=== PATIENT | female | born 1930 | race Caucasian/White ===

== ENCOUNTER 2017-10-05 18:33 | Inpatient (IN) ==
[2017-10-05 19:10] LABS: Eosinophils % 0.2 % (0.1-12.0); Hematocrit 33.7 % (37.0-47.0); Hemoglobin 9.4 g/dL (12.2-16.2); Lymphocytes # 0.7 K/mm3 (0.7-4.5); Lymphocytes % 3.5 K/mm3 (10-50); Mean Corpuscular HGB Conc 27.9 g/dL (31.8-35.4); Mean Corpuscular Hemoglobin 16.7 pg (27.0-31.2); Mean Corpuscular Volume 59.7 fl (81-99); Mean Platelet Volume 6.2 fl (7.4-10.4); Monocytes # 1.1 K/mm3 (0.1-1.0); Monocytes % 5.7 % (1.7-9.3); Neutrophils % 90.6 % (37.0-80.0); Platelet Count 419 K/mm3 (142-424); Red Blood Count 5.65 M/mm3 (4.20-5.40); White Blood Count 19.8 K/mm3 (4.8-10.8)
[2017-10-05 19:19] LABS: Hypochromasia 3+; Lymphocytes % 3 % (10-50); Monocytes % 7 % (2-9); Neutrophils % 89 % (42-76); Total Cells Counted 100
[2017-10-05 19:20] LABS: Albumin/Globulin Ratio 0.8 (1.1-1.8); Anion Gap 13.1 mEq/L (5-15); Bilirubin,Total 1.6 mg/dL (0.2-1.0); Calcium 9.4 mg/dL (8.5-10.1); Globulin 3.9 gm/dl (1.3-3.2); Potassium 4.1 mmoL/L (3.5-5.1); Total Protein,Serum 6.9 gm/dL (6.4-8.2)
--- NOTE | 2017-10-05 20:23 | Emergency Department Note ---
ED Disposition Clinical Impression: Incarcerated right inguinal hernia, SBO (small bowel obstruction), Renal insufficiency Anemia Qualifiers: Anemia type: unspecified type Qualified Code(s): D64.9 - Anemia, unspecified Disposition: Admitted As Inpatient Condition on Discharge: Serious - Critical Care Critical Care Time: No Attestation: On 10/05/17, the high probability of a clinically significant, sudden or life threatening deterioration of the following system(s) required my full and direct attention, intervention and personal management. The time I documented below is in addition to time spent performing reported procedures but includes the following listed in this critical care notation. Medical Decision Making - Medical Records Medical records reviewed: Yes: I reviewed the patient's medical records. - Wilfrido Inquiry Pt receiving controlled substance: No Vital Signs: 10/05/17 18:42 Temperature 98.1 F Temperature Source Oral Pulse Rate [Left Radial] 77 Respiratory Rate 24 Blood Pressure [Right Arm] 100/58 Blood Pressure Mean [Right Arm] 72 Blood Pressure Source [Right Arm] Automatic Cuff Blood Pressure Position [Right Arm] Sitting 02 Sat by Pulse Oximetry 95 Oxygen Delivery Method Nasal Cannula Oxygen Flow Rate (LPM) 2 - Lab Data Lab results reviewed: Yes: I reviewed the patient's lab results. Lab Results 10/05/17 19:00: WBC 19.8 H, RBC 5.65 H, Hgb 9.4 L, Hct 33.7 L, MCV 59.7 L, MCH 16.7 L, MCHC 27.9 L, RDW 21.0 H, Plt Count 419, MPV 6.2 L, Neut % (Auto) 90.6 H , Lymph % (Auto) 3.5 L, [place] % (Auto) 5.7, Eos % (Auto) 0.2, Baso % (Auto) 0.0 L , Neut # (Auto) 18.0 H, Lymph # (Auto) 0.7, [place] # (Auto) 1.1 H, Eos # (Auto) 0.0, Baso # (Auto) 0.0, Total Counted 100, Neutrophils % (Manual) 89 H, Band Neutrophils % 1.0, Lymphocytes % (Manual) 3 L, Monocytes % (Manual) 7, Platelet Estimate Normal, Hypochromasia 3+, Microcytosis 3+ 10/05/17 19:00: Sodium 136, Potassium 4.1, Chloride 98, Carbon Dioxide 29, Anion Gap 13.1, BUN 43 H, Creatinine 2.32 H, Estimated Creat Clear 12, Estimated GFR 20 L, Est GFR ( Amer) 24 L, Glucose 132 H, Calcium 9.4, Total Bilirubin 1.6 H, AST 18, ALT 22, Alkaline Phosphatase 70, Total Protein 6.9, Albumin 3.0 L, Globulin 3.9 H, Albumin/Globulin Ratio 0.8 L, Amylase 31, Lipase 79 10/05/17 19:00: Lactic Acid 1.4 10/05/17 20:25: Urine Color Yellow, Urine Appearance Clear, Urine pH 5.5, Ur Specific [place] 1.025, Urine Protein Negative, Urine Glucose (UA) Negative, Urine Ketones Negative, Urine Blood Negative, Urine Nitrate Negative, Urine Bilirubin Negative, Urine Urobilinogen 1.0, Ur Leukocyte Esterase 2+ A, Urine RBC None, Urine WBC 20-50, Ur Squamous Epith Cells 10-20, Ur Transition Epith Cell 10-20, Urine Bacteria 2+, Hyaline Casts 10-20 Result diagrams: 10/05/17 19:00 10/05/17 19:00 Orders (Tests/Meds): ED MEDICATIONS Discontinued Medications Generic Name Dose Route Start Last Admin Trade Name Freq PRN Reason Stop Dose Admin Sodium Chloride 1,000 mls @ 999 mls/hr 10/05/17 19:00 10/05/17 19:03 Sod Chlor 0.9% 1000ml Bag IV 10/05/17 20:00 999 mls/hr .Q1H1M YENNIFER Administration Ondansetron HCl 4 mg 10/05/17 18:49 10/05/17 19:03 Zofran 4mg/2ml Vial IV 10/05/17 18:50 4 mg ONCE ONE Administration ORDERS Category Date Time Status CT abdomen pelvis wo con Stat Cat Scan 10/05/17 18:51 Taken Chest XR 2 view (NOT portable) [XR chest 2V] Stat Exams 10/05/17 19:02 Taken Blood Culture Stat Micro 10/05/17 18:51 Received Urine Culture Stat Micro 10/05/17 20:25 Received - Radiology Data #1 Image Reviewed: Yes I reviewed the patient's radiology image Preliminary Findings: Abnormal (chronic changes ) - CT Data CT Scan: Abdomen, Pelvis Time Received: 21:[address] Reviewed: Yes: I have viewed the radiologist's interpretation Preliminary Findings: Abnormal (sbo/incarcerated hernia ) - ECG Data Tracing #1 I reviewed this ECG and interpreted as documented below: Normal Sinus Rhythm: Yes Ischemic changes: non-specific ST-T wave changes - Physician Consults Physician Consulted: sabina Reason -: Pt condition Additional Consult: sarah Reason -: Admission Nausea/Vomiting/Diarrhea HPI - General Chief complaint: Nausea/Vomiting/Diarrhea Stated complaint: Vomiting, Chills, Abd pain, Dizzy Time Seen by Provider: 10/05/17 20:00 Mode of Arrival: Ambulatory Limitations: No Limitations Description of Symptoms (Recalled from ER Triage Doc. by RN): Pt was seen Monday by Sarah for nausea and vomiting, she was given an antibiotic for a bacterial infection unsure what kind, but pt hasnt gotten any better, she is unable to keep any food or drink down. - History of Present Illness HPI Narrative: pt with abd pain over the last few day with pain rt groin and no fever or trauma and no diarrhea MD complaint: nausea, vomiting, abdominal pain Onset (ago): day(s) Associated Abdominal Pain: Yes Location of pain: RLQ Severity: moderate Consistency: constant Associated symptoms: nausea/vomiting - Related Data Allergies Allergy/AdvReac Type Severity Reaction Status Date / Time INGREDIENT: NO KNOWN - NO Allergy Unknown Uncoded 02/28/17 15:[address] [facility] History I have reviewed the patient's past medical history: Yes Medical History: Denies:: Diabetes Mellitus Type 1, Diabetes Mellitus Type 2 - Social History Smoking Status: Former smoker Alcohol Intake: never - Psychiatric History Expresses thoughts of harming self/others: None Suicide Plan Description: No Plan ROS Obtained: Yes All systems reviewed & no additional complaints - Constitutional Constitutional: Denies fever(s) - Eyes Eyes: Denies change in vision - ENT Ears, Nose, Mouth, and Throat: Denies sore throat - Cardiovascular Cardiovascular: Denies chest pain - Respiratory Respiratory: No cough - Gastrointestinal Gastrointestingal: Reports: abdominal pain, nausea, vomiting - Genitourinary Female Genitourinary: Denies hematuria - Integumentary/Breasts Skin/Breast: Denies rash - Neurologic Neurologic: Denies seizure-like activity Physical Exam - General General appearance: alert - Head Head exam: normocephalic - Eye Eye exam: Present: PERRL, EOMI. Absent: scleral icterus - ENT ENT exam: Present: mucous membranes dry - Neck Neck exam: Present: trachea midline - Respiratory Respiratory exam: Present: other (dec bs bilat ). Absent: respiratory distress - Cardiovascular Cardiovascular exam: Present: regular rate, systolic murmur, +S4 - Abdominal Exam Abdominal exam: Present: soft, tenderness Abdominal tenderness: Present: moderate Comment: incarcerated rt inguinal hernia - Extremities Exam Extremities exam: Absent: calf tenderness - Neurological Exam Neurological exam: Present: alert, oriented X3, CN II-XII intact - Psychiatric Psychiatric exam: Present: normal affect - Skin Skin exam: Absent: rash
[2017-10-05 20:36] LABS: Appearance,Urine CLEAR (Clear); Blood, Urine Negative (Negative); Color,Urine YELLOW (Yellow); Glucose,Urine (UA) Negative (Negative); Ketones,Urine Negative (Negative); Leukocyte Esterase,Urine 2+ (Negative); Microscopic, Urine URINE MICROSCOPIC (MICROSCOPIC); PH,Urine 5.5 (5.0-8.5); Protein,Urine Negative (Negative); Specific Gravity, Urine 1.025 (1.005-1.030)
[2017-10-05 20:41] LABS: Bilirubin,Urine Negative (Negative)
[2017-10-05 20:50] LABS: Bacteria,Urine 2+ /lpf; WBC,Urine 20-50 #/hpf (0-3)
[2017-10-05 21:28] LABS: INR 0.98 (0.9-1.1); Prothrombin Time 10.1 seconds (9.4-11.8)
--- NOTE | 2017-10-05 21:34 | Consult Report ---
*Admission Date: 10/05/17 *Chief complaint: Nausea vomiting abdominal pain *History of present illness: Patient is an 86-year-old white female. She has a known history of a right inguinal hernia. She states that 4 days ago after she had eaten she developed cramping abdominal pain with nausea and vomiting. This has persisted. She saw primary care provider on Monday. It is felt that this may be gastroenteritis. Her symptoms have persisted. She presented to the emergency department this evening. She underwent noncontrast CT scan which revealed small bowel obstruction secondary to right inguinal hernia. Patient states that she had this right inguinal bulge which has been "flat" for years. However, when she developed the nausea and vomiting 4 days ago is protruded significantly more. Surgical consultation was obtained. Review of Systems - Review of Systems Review of systems:: pertinent systems reviewed and negative unless documented below - *Neurologic Denies seizure-like activity [facility] History Medical History: Reports:: Chronic Obstructive Pulmonary Disease (COPD) Denies:: Diabetes Mellitus Type 1, Diabetes Mellitus Type 2 - *Social History Smoking Status: Former smoker Alcohol Intake: never - Psychiatric History Expresses thoughts of harming self/others: None Suicide Plan Description: No Plan Meds Home Medications Medication Instructions Recorded Confirmed Type Alendronate Sodium 70 mg PO WEEKLY 10/05/17 10/05/17 History Aspirin [Aspir 81] 81 mg PO DAILY 10/05/17 10/05/17 History Cyanocobalamin (Vitamin B-12) 2,000 mcg PO DAILY 10/05/17 10/05/17 History [Vitamin B-12] Ergocalciferol (Vitamin D2) 400 unit PO DAILY 10/05/17 10/05/17 History [Vitamin D] Furosemide [Furosemide 40MG tAB] 40 mg PO DAILY 10/05/17 10/05/17 History Latanoprost [Xalatan 0.005% Ophth 1 drop EYE-BOTH DAILY 10/05/17 10/05/17 History Soln 2.5mL] Metformin HCl 500 mg PO DAILY 10/05/17 10/05/17 History Nebivolol HCl [Bystolic] 5 mg PO DAILY 10/05/17 10/05/17 History Ondansetron HCl 4 mg PO Q6HP PRN 10/05/17 10/05/17 History Pravastatin Sodium 80 mg PO DAILY 10/05/17 10/05/17 History Spironolactone 25 mg PO DAILY 10/05/17 10/05/17 History Sulfamethoxazole/Trimethoprim 800 mg PO DAILY 10/05/17 10/05/17 History [Sulfamethoxazole-Tmp Ds Tablet] Ubidecarenone [Co Q-10] 10 mg PO DAILY 10/05/17 10/05/17 History Umeclidinium Brm/Vilanterol Tr 1 inhalation PO DAILY 10/05/17 10/05/17 History [Anoro Ellipta 62.5-25 Mcg INH] Valsartan 160 mg PO DAILY 10/05/17 10/05/17 History predniSONE [Deltasone 10mg tablet] 5 mg PO DAILY 10/05/17 10/05/17 History Allergies Allergy/AdvReac Type Severity Reaction Status Date / Time INGREDIENT: NO KNOWN - NO Allergy Unknown Uncoded 02/28/17 15:30 KNOWN DRUG ALLERGY Exam Vital signs and Labs for Last 24 Hours: Temp Pulse Resp BP Pulse Ox 98.1 F 77 24 100/58 95 10/05/17 18:42 10/05/17 18:42 10/05/17 18:42 10/05/17 18:42 10/05/17 18:42 Laboratory Results - last 24 hr 10/05/17 18:00: PT 10.1, INR 0.98 10/05/17 19:00: WBC 19.8 H, RBC 5.65 H, Hgb 9.4 L, Hct 33.7 L, MCV 59.7 L, MCH 16.7 L, MCHC 27.9 L, RDW 21.0 H, Plt Count 419, MPV 6.2 L, Neut % (Auto) 90.6 H , Lymph % (Auto) 3.5 L, [place] % (Auto) 5.7, Eos % (Auto) 0.2, Baso % (Auto) 0.0 L , Neut # (Auto) 18.0 H, Lymph # (Auto) 0.7, [place] # (Auto) 1.1 H, Eos # (Auto) 0.0, Baso # (Auto) 0.0, Total Counted 100, Neutrophils % (Manual) 89 H, Band Neutrophils % 1.0, Lymphocytes % (Manual) 3 L, Monocytes % (Manual) 7, Platelet Estimate Normal, Hypochromasia 3+, Microcytosis 3+ 10/05/17 19:00: Sodium 136, Potassium 4.1, Chloride 98, Carbon Dioxide 29, Anion Gap 13.1, BUN 43 H, Creatinine 2.32 H, Estimated Creat Clear 12, Estimated GFR 20 L, Est GFR ( Amer) 24 L, Glucose 132 H, Calcium 9.4, Total Bilirubin 1.6 H, AST 18, ALT 22, Alkaline Phosphatase 70, Total Protein 6.9, Albumin 3.0 L, Globulin 3.9 H, Albumin/Globulin Ratio 0.8 L, Amylase 31, Lipase 79 10/05/17 19:00: Lactic Acid 1.4 10/05/17 20:25: Urine Color Yellow, Urine Appearance Clear, Urine pH 5.5, Ur Specific [place] 1.025, Urine Protein Negative, Urine Glucose (UA) Negative, Urine Ketones Negative, Urine Blood Negative, Urine Nitrate Negative, Urine Bilirubin Negative, Urine Urobilinogen 1.0, Ur Leukocyte Esterase 2+ A, Urine RBC None, Urine WBC 20-50, Ur Squamous Epith Cells 10-20, Ur Transition Epith Cell 10-20, Urine Bacteria 2+, Hyaline Casts 10-20 I & O for Last 24 hours: Intake & Output 10/03/17 10/04/17 10/05/17 10/06/17 11:59 11:59 11:59 11:59 Weight 92 lb - Constitutional no acute distress - *Routine Respiratory Exam Present: distant breath sounds, diminished air movement - *Routine Cardiovascular Exam Present: RRR - *Routine Abdominal Exam Present: soft - *Routine Exam Groin: Present: inguinal hernia, tenderness Comments: She has an obvious right inguinal hernia. There is some minor erythema. Palpation elicits tenderness and I am unable to reduce the hernia. Results - Labs 10/05/17 19:00 10/05/17 19:00 Laboratory Results - last 24 hr 10/05/17 18:00: PT 10.1, INR 0.98 10/05/17 19:00: WBC 19.8 H, RBC 5.65 H, Hgb 9.4 L, Hct 33.7 L, MCV 59.7 L, MCH 16.7 L, MCHC 27.9 L, RDW 21.0 H, Plt Count 419, MPV 6.2 L, Neut % (Auto) 90.6 H , Lymph % (Auto) 3.5 L, [place] % (Auto) 5.7, Eos % (Auto) 0.2, Baso % (Auto) 0.0 L , Neut # (Auto) 18.0 H, Lymph # (Auto) 0.7, [place] # (Auto) 1.1 H, Eos # (Auto) 0.0, Baso # (Auto) 0.0, Total Counted 100, Neutrophils % (Manual) 89 H, Band Neutrophils % 1.0, Lymphocytes % (Manual) 3 L, Monocytes % (Manual) 7, Platelet Estimate Normal, Hypochromasia 3+, Microcytosis 3+ 10/05/17 19:00: Sodium 136, Potassium 4.1, Chloride 98, Carbon Dioxide 29, Anion Gap 13.1, BUN 43 H, Creatinine 2.32 H, Estimated Creat Clear 12, Estimated GFR 20 L, Est GFR ( Amer) 24 L, Glucose 132 H, Calcium 9.4, Total Bilirubin 1.6 H, AST 18, ALT 22, Alkaline Phosphatase 70, Total Protein 6.9, Albumin 3.0 L, Globulin 3.9 H, Albumin/Globulin Ratio 0.8 L, Amylase 31, Lipase 79 10/05/17 19:00: Lactic Acid 1.4 10/05/17 20:25: Urine Color Yellow, Urine Appearance Clear, Urine pH 5.5, Ur Specific [place] 1.025, Urine Protein Negative, Urine Glucose (UA) Negative, Urine Ketones Negative, Urine Blood Negative, Urine Nitrate Negative, Urine Bilirubin Negative, Urine Urobilinogen 1.0, Ur Leukocyte Esterase 2+ A, Urine RBC None, Urine WBC 20-50, Ur Squamous Epith Cells 10-20, Ur Transition Epith Cell 10-20, Urine Bacteria 2+, Hyaline Casts 10-20 Assessment and Plan - Assessment and plan all Dx Assessment and Plan for all problems:: Patient has small bowel obstruction secondary to incarcerated and possibly strangulated inguinal hernia. Plan will be for emergent groin exploration and repair of inguinal hernia. She could require bowel resection if there is evidence of necrosis either through the groin incision or midline. Therefore plan for open right inguinal hernia repair with possible bowel resection and possible laparotomy.
--- NOTE | 2017-10-05 21:45 | Progress Note ---
[facility] Anesthesia Checklist - Patient Identification Patient Identification: Arm Band, Verbal (Name & ) - Structural Data Admitted From: Emergency Dept Planned Operative Procedure/s: ing. hernia repair Consent for Planned Operative Procedure(s) Verified: Yes Verified Documents: Surgical Consent - NPO Status Verified Time NPO: 12:00 - Chart Verification Results Verified: CBC, BMP - Additional verifications Patient : No Anesthesia Reactions: No Hx Blood Transfusions: No Blood Transfusion Reaction: No Cephalosporin Allergy: No Previous Colonoscopy: No - Cardiovascular Assessment Heart Sounds: S1 & S2 Pulse Strength: Baseline Pulse Rhythm: Regular Peripheral Edema: No - Airway Assessment C-Spine Mobility Assessed: Yes TMJ Mobility Assessed: Yes Dentition: Edentulous - Neurological Assessment Level of Consciousness: Awake, Appropriate Hx Seizures: No Numbness or tingling in extremities: No - Anesthesia Plan Anesthesia Risk discussed: Yes Anesthesia Plan: Verified ASA Class: III Anesthesia Type: General [facility] Anesthesia HX I have reviewed the patient's past medical history: Yes Medical History: Reports:: Chronic Obstructive Pulmonary Disease (COPD) Denies:: Diabetes Mellitus Type 1, Diabetes Mellitus Type 2 Laterality Cases: Bilateral: Lumpectomy Amputation: No Fractures: No *Family Hx:: No significant family history
--- NOTE | 2017-10-06 00:56 | Progress Note ---
[facility] Anesthesia Record Part I Intake, IV Amount: 650 Estimated blood loss (mL): 50 Urine output (mL): 50 Blood Products used (#): none Blood Pressure: 100/55 SaO2: 96 Pulse Rate: 68 Respiratory Rate: 18 Temperature: 97.8 F Patient is:: Drowsy, Mask O2, Stable Stable to PACU at:: 00:48
--- NOTE | 2017-10-06 00:57 | Progress Note ---
[facility] Anesthesia Record Part II Discharge Time: 01:18 Destination: Medical Surgical Department PACU nurse assessment reviewed?: Yes Patient Condition:: Good Anesthesia Complications:: None
--- NOTE | 2017-10-06 01:00 | Operative Note ---
Date of procedure: 10/06/17 Pre-op Diagnosis:: Small bowel obstruction secondary to incarcerated inguinal hernia Post-op Diagnosis:: Small bowel obstruction secondary to strangulated femoral hernia Procedure performed:: Open repair via trans-inguinal approach of femoral hernia Small bowel resection with primary anastomosis Surgeon:: Bereket Boo MD OFFICE ADMINISTRATION INSTRUCTOR:: Rafat Bond Anesthesia: GETA Estimated blood loss (mL): 75 Clinical Note:: Patient is an 86-year-old white female. For several years she has had a bulge in the right groin area. She states that for several days she had developed some nausea and vomiting and cramping abdominal pain. She had some vigorous vomiting and noted that the hernia had protruded more. Her symptoms have persisted and she ultimately presented to the emergency department at [facility]. She had a CT scan performed which revealed small bowel obstruction secondary to right inguinal hernia. This was unable to be reduced and surgical consultation was obtained. Patient was seen and examined and found to have a tender mildly erythematous right groin hernia which was unable to be reduced consistent with incarcerated and possibly strangulated groin hernia. Plan was made for emergent repair. Operative findings:: Patient had a strangulated femoral hernia with full-thickness necrosis of a knuckle of small bowel creating small bowel obstruction. Operative note:: Consent was obtained patient was taken emergently to the operating room. She was positioned in a supine position. General anesthesia was induced via endotracheal tube. Abdomen was prepped and draped in the standard surgical fashion. Please note that she had Castillo catheter placed as well. Oblique incision was made a couple centimeters superior to landmarks identifying the inguinal ligament. Dissection was carried down through subcutaneous tissues and Ty's fascia using electrocautery. External oblique muscle was exposed. Palpation of the inguinal canal revealed no hernia present in the inguinal region but evidence of incarcerated femoral hernia. Plan was made for trans- inguinal repair of femoral hernia. The external oblique muscle was opened. Dissection was carried down exposing the inguinal contents. Please note that the round ligament was clamped ligated and divided. The ilioinguinal nerve was preserved. With some difficulty the hernia sac was ultimately able to be reduced below the inguinal ligament and into the inguinal floor. It was difficult to discern the structures of the hernia sac due to its significant inflammation initially. The hernia sac was opened. There was some turbid fluid present and foul smell from necrosis of the bowel. This was not perforated but was full-thickness necrosis of the small knuckle of small bowel. Exposure was achieved incising the hernia sac using electrocautery. Hernia sac was markedly thickened. Bowel was delivered through the hernia sac. The portion of necrotic small bowel was divided proximal and distal with a OMAR linear cutting stapling device. Small bowel mesentery was sequentially clamped divided and ligated with Vicryl ties. There is an obvious proximal distention of the small bowel with decompression distally. Small bowel was edematous and thickened approximately. A side to side anastomosis was created with a OMAR-75 stapling device. The small bowel enterotomy was then closed with a TX 60 B stapling device. A couple of 3 of Surgilon sutures were placed at the staple line angle and along the TX 60 B staple line. The small bowel mesenteric defect was closed with a running 3-0 Vicryl. Anastomosis was widely patent and intact. Small bowel proximal to the anastomosis appears somewhat inflamed but viable. Small bowel was returned to the peritoneal cavity. Extraneous hernia sac was excised using electrocautery and sent off as specimen. The hernia sac was then closed with a running locking 2-0 Vicryl. Hernia defect was repaired as much as feasible primarily without mesh due to the evidence of bowel necrosis. This was performed using 2-0 Ethibond suturing the shelving edge of to the pubic tubercle and then to the transversalis fascia. Repair of the femoral defect was difficult due to the severely inflamed surrounding tissues and the patient's poor tissue integrity. Inguinal nerve was returned to the normal position. Thorough irrigation was carried out. Local anesthetic was infiltrated. External oblique muscle was closed with a running 2-0 Vicryl. Ty's fascia was closed with running 3-0 Vicryl. Skin was closed with 4-0 Monocryl running subcuticular fashion. Clean dry sterile dressing was applied. Condition: stable Disposition: PACU Specimens:: Hernia sac Small Bowel Complications:: None immediately apparent
[2017-10-06 05:45] LABS: Hematocrit 31.6 % (37.0-47.0); Hemoglobin 8.7 g/dL (12.2-16.2); Lymphocytes # 0.3 K/mm3 (0.7-4.5); Lymphocytes % 2.1 K/mm3 (10-50); Mean Corpuscular HGB Conc 27.4 g/dL (31.8-35.4); Mean Corpuscular Hemoglobin 16.8 pg (27.0-31.2); Mean Corpuscular Volume 61.3 fl (81-99); Mean Platelet Volume 6.6 fl (7.4-10.4); Monocytes # 0.7 K/mm3 (0.1-1.0); Monocytes % 5.1 % (1.7-9.3); Neutrophils # 13.1 K/mm3 (1.8-7.8); Neutrophils % 92.8 % (37.0-80.0); Platelet Count 360 K/mm3 (142-424); Red Blood Count 5.16 M/mm3 (4.20-5.40); Red Cell Distribution Width 20.9 % (11.5-17.5); White Blood Count 14.1 K/mm3 (4.8-10.8)
[2017-10-06 05:53] LABS: Anion Gap 13.4 mEq/L (5-15); Potassium 4.4 mmoL/L (3.5-5.1)
[2017-10-06 05:59] LABS: Calcium 8.4 mg/dL (8.5-10.1)
[2017-10-06 06:03] LABS: Monocytes % 2 % (2-9); Neutrophils % 98 % (42-76); Total Cells Counted 100
[2017-10-06 06:05] LABS: Hypochromasia 3+; Target Cells 1+
--- NOTE | 2017-10-06 07:35 | Pharmacy Consult Notes ---
[facility] Pharmacy VTE Monitoring - Patient Demographics Admission date: 10/06/17 Report Date: 10/06/17 Time: 07:35 Allergies/Adverse Reactions: Patient Allergies INGREDIENT: NO KNOWN - NO KNOWN DRUG ALLERGY Allergy (Unknown, Uncoded 02/28/17 15:30) Height: 1.57 m Weight: 45.473 kg Patient Problems: Current Active Problems Incarcerated right inguinal hernia (Acute) SBO (small bowel obstruction) (Acute) Anemia (Acute) Renal insufficiency (Acute) - VTE Risk Labs: VTE Related Lab Results Hgb 8.7 g/dL (12.2-16.2) L 10/06/17 05:30 Hct 31.6 % (37.0-47.0) L 10/06/17 05:30 Plt Count 360 K/mm3 (142-424) 10/06/17 05:30 PT 10.1 seconds (9.4-11.8) 10/05/17 18:00 INR 0.98 (0.9-1.1) 10/05/17 18:00 BUN 41 mg/dL (7-18) H 10/06/17 05:30 Creatinine 2.07 mg/dL (0.55-1.02) H 10/06/17 05:30 Estimated Creat Clear 14 mL/min (0-300) 10/06/17 05:30 Was VTE Risk Assessment Performed: Yes VTE Score: 2 VTE Risk Level: Very Low Risk - Prophylaxis VTE Prophylaxis Ordered?: Yes Types of VTE Prophylaxis: TEDS Knee High Location of Applied Device: Bilateral Lower Extremeties - VTE Diagnosis Confirmed Treatment or plan recommended: Continue Current Treatment
--- NOTE | 2017-10-06 09:55 | Progress Note ---
Subjective Narrative: Patient without significant complaints this morning. Complains mainly of feeling thirsty. Exam Vital signs and Labs for Last 24 Hours: Temp Pulse Resp BP Pulse Ox 98.2 F 71 20 94/46 95 10/06/17 06:35 10/06/17 07:25 10/06/17 07:25 10/06/17 07:25 10/06/17 07:25 Laboratory Results - last 24 hr 10/05/17 18:00: PT 10.1, INR 0.98 10/05/17 19:00: WBC 19.8 H, RBC 5.65 H, Hgb 9.4 L, Hct 33.7 L, MCV 59.7 L, MCH 16.7 L, MCHC 27.9 L, RDW 21.0 H, Plt Count 419, MPV 6.2 L, Neut % (Auto) 90.6 H , Lymph % (Auto) 3.5 L, [place] % (Auto) 5.7, Eos % (Auto) 0.2, Baso % (Auto) 0.0 L , Neut # (Auto) 18.0 H, Lymph # (Auto) 0.7, [place] # (Auto) 1.1 H, Eos # (Auto) 0.0, Baso # (Auto) 0.0, Total Counted 100, Neutrophils % (Manual) 89 H, Band Neutrophils % 1.0, Lymphocytes % (Manual) 3 L, Monocytes % (Manual) 7, Platelet Estimate Normal, Hypochromasia 3+, Microcytosis 3+ 10/05/17 19:00: Sodium 136, Potassium 4.1, Chloride 98, Carbon Dioxide 29, Anion Gap 13.1, BUN 43 H, Creatinine 2.32 H, Estimated Creat Clear 12, Estimated GFR 20 L, Est GFR ( Amer) 24 L, Glucose 132 H, Calcium 9.4, Total Bilirubin 1.6 H, AST 18, ALT 22, Alkaline Phosphatase 70, Total Protein 6.9, Albumin 3.0 L, Globulin 3.9 H, Albumin/Globulin Ratio 0.8 L, Amylase 31, Lipase 79 10/05/17 19:00: Lactic Acid 1.4 10/05/17 20:25: Urine Color Yellow, Urine Appearance Clear, Urine pH 5.5, Ur Specific [place] 1.025, Urine Protein Negative, Urine Glucose (UA) Negative, Urine Ketones Negative, Urine Blood Negative, Urine Nitrate Negative, Urine Bilirubin Negative, Urine Urobilinogen 1.0, Ur Leukocyte Esterase 2+ A, Urine RBC None, Urine WBC 20-50, Ur Squamous Epith Cells 10-20, Ur Transition Epith Cell 10-20, Urine Bacteria 2+, Hyaline Casts 10-20 10/06/17 00:00: Urine Color Yellow, Urine Appearance Clear, Urine pH 5.5, Ur Specific [place] 1.025, Urine Protein Negative, Urine Glucose (UA) Negative, Urine Ketones Negative, Urine Blood Negative, Urine Nitrate Negative, Urine Bilirubin Negative, Urine Urobilinogen 1.0, Ur Leukocyte Esterase 1+ A, Urine RBC Occasional, Urine WBC 10-20 A, Ur Squamous Epith Cells 3-5, Urine Bacteria Trace 10/06/17 05:30: WBC 14.1 H D, RBC 5.16, Hgb 8.7 L, Hct 31.6 L, MCV 61.3 L, MCH 16.8 L, MCHC 27.4 L, RDW 20.9 H, Plt Count 360, MPV 6.6 L, Neut % (Auto) 92.8 H , Lymph % (Auto) 2.1 L, [place] % (Auto) 5.1, Eos % (Auto) 0.0 L, Baso % (Auto) 0.0 L, Neut # (Auto) 13.1 H, Lymph # (Auto) 0.3 L, [place] # (Auto) 0.7, Eos # ( Auto) 0.0, Baso # (Auto) 0.0, Total Counted 100, Neutrophils % (Manual) 98 H, Monocytes % (Manual) 2, Platelet Estimate Normal, Hypochromasia 3+, Microcytosis 3+, Target Cells 1+ 10/06/17 05:30: Sodium 141, Potassium 4.4, Chloride 104, Carbon Dioxide 28, Anion Gap 13.4, BUN 41 H, Creatinine 2.07 H, Estimated Creat Clear 14, Estimated GFR 23 L, Est GFR ( Amer) 28 L, Glucose 141 H, Calcium 8.4 L D I & O for Last 24 hours: Intake & Output 10/03/17 10/04/17 10/05/17 10/06/17 11:59 11:59 11:59 11:59 Intake Total 650 / 650 Output Total 200 / 200 Balance 450 / 450 Weight 100 lb 4 oz - *Routine Abdominal Exam Present: soft, distended - *Routine Exam Comments: Dressing clean and intact Progress Note: A&P Assessment and Plan for All Diagnoses:: Continue IV fluid hydration. Continue n.p.o. for now except for ice chips. Chest x-ray to check position of nasogastric tube. Due to dehydration and renal insufficiency maintain Castillo for now.
--- NOTE | 2017-10-06 13:28 | History & Physical Report ---
*Admission Date: 10/06/17 *Chief complaint: abdominal pain, vomiting *History of present illness: Ms. Eng is an 86-year-old white female. She has a known history of a right inguinal hernia. She states that 4 days ago after she had eaten, she developed cramping abdominal pain with nausea and vomiting. This persisted. She saw Dr. Love Monday. It is felt that this may be gastroenteritis but her WBC was elevated. He prescribed her bactrim and zofran. Her symptoms persisted and she presented to the emergency department yesterday evening. She underwent a noncontrast CT scan which revealed a small bowel obstruction secondary to the right inguinal hernia. Patient states that she did have a right inguinal bulge which has been "flat" for years. When she developed the nausea and vomiting 4 days ago, it protruded significantly more. Surgery was consulted and it was felt she had a strangulated inguinal hernia. She was taken to emergency surgery and had an open repair via trans-inguinal approach of the femoral hernia with a small bowel resection and primary anastomosis. She tolerated the procedure well. At this time she is feeling better. She has an NG tube in place as well as a catheter. She denies any pain. She states she is hungry and thirsty. [facility] History Medical History: Reports:: Chronic Obstructive Pulmonary Disease (COPD), Diabetes Mellitus Type 2, Hyperlipidemia, Hypertension, Osteoporosis Denies:: Cancer, Diabetes Mellitus Type 1, MRSA, Seizures Other Medical History: Reports: Arthritis, Glaucoma. Denies: Blood Transfusion Reaction Laterality Cases: Bilateral: Lumpectomy Other Surgeries: Yes: Colonoscopy Amputation: No Fractures: No Comment: Brain surgery 1984 - *Social History Educational Level: Completed High School Smoking Status: Former smoker Tobacco Type: cigarettes #Yrs smoked (if former smoker): 35 Alcohol Intake: never Occupational Status: retired Housing: house Household Members: spouse - Psychiatric History Expresses thoughts of harming self/others: None Suicide Plan Description: No Plan *Family Hx:: Cancer Review of Systems - Constitutional Denies body ache(s), Denies chills - Eyes Denies blurry vision, Denies double vision - ENT Denies nasal congestion, Denies sore throat - *Cardiovascular Denies chest pain, Denies irregular heart rhythm - *Respiratory Reports shortness of breath, Denies cough - *Gastrointestinal Reports abdominal pain, Reports loose stools, Reports nausea, Reports vomiting - *Genitourinary Denies difficulty urinating, Denies painful urination - *Musculoskeletal Denies joint pain - *Neurologic Reports weakness, Denies dizziness, Denies headache(s), Denies seizure-like activity Meds Home Medications Medication Instructions Recorded Confirmed Type Alendronate Sodium 70 mg PO WEEKLY 10/05/17 10/05/17 History Aspirin [Aspir 81] 81 mg PO DAILY 10/05/17 10/05/17 History Cyanocobalamin (Vitamin B-12) 2,000 mcg PO DAILY 10/05/17 10/05/17 History [Vitamin B-12] Ergocalciferol (Vitamin D2) 400 unit PO DAILY 10/05/17 10/05/17 History [Vitamin D] Furosemide [Furosemide 40MG tAB] 40 mg PO DAILY 10/05/17 10/05/17 History Latanoprost [Xalatan 0.005% Ophth 1 drop EYE-BOTH DAILY 10/05/17 10/05/17 History Soln 2.5mL] Metformin HCl 500 mg PO DAILY 10/05/17 10/05/17 History Nebivolol HCl [Bystolic] 5 mg PO DAILY 10/05/17 10/05/17 History Ondansetron HCl 4 mg PO Q6HP PRN 10/05/17 10/05/17 History Pravastatin Sodium 80 mg PO HS 10/05/17 10/06/17 History Spironolactone 25 mg PO DAILY 10/05/17 10/05/17 History Sulfamethoxazole/Trimethoprim 1 tab PO BID 10/05/17 10/06/17 History [Sulfamethoxazole-Tmp Ds Tablet] Ubidecarenone [Co Q-10] 10 mg PO DAILY 10/05/17 10/05/17 History Umeclidinium Brm/Vilanterol Tr 1 puff PO DAILY 10/05/17 10/06/17 History [Anoro Ellipta 62.5-25 Mcg INH] Valsartan 160 mg PO DAILY 10/05/17 10/05/17 History predniSONE [Deltasone 10mg tablet] 5 mg PO DAILY 10/05/17 10/05/17 History Allergies Allergy/AdvReac Type Severity Reaction Status Date / Time No Known Allergies Allergy Unverified 10/06/17 07:59 Exam Vital signs and Labs for Last 24 Hours: Temp Pulse Resp BP Pulse Ox 98.2 F 74 20 102/57 96 10/06/17 06:35 10/06/17 11:00 10/06/17 11:00 10/06/17 11:00 10/06/17 11:00 Laboratory Results - last 24 hr 10/05/17 18:00: PT 10.1, INR 0.98 10/05/17 19:00: WBC 19.8 H, RBC 5.65 H, Hgb 9.4 L, Hct 33.7 L, MCV 59.7 L, MCH 16.7 L, MCHC 27.9 L, RDW 21.0 H, Plt Count 419, MPV 6.2 L, Neut % (Auto) 90.6 H , Lymph % (Auto) 3.5 L, [place] % (Auto) 5.7, Eos % (Auto) 0.2, Baso % (Auto) 0.0 L , Neut # (Auto) 18.0 H, Lymph # (Auto) 0.7, [place] # (Auto) 1.1 H, Eos # (Auto) 0.0, Baso # (Auto) 0.0, Total Counted 100, Neutrophils % (Manual) 89 H, Band Neutrophils % 1.0, Lymphocytes % (Manual) 3 L, Monocytes % (Manual) 7, Platelet Estimate Normal, Hypochromasia 3+, Microcytosis 3+ 10/05/17 19:00: Sodium 136, Potassium 4.1, Chloride 98, Carbon Dioxide 29, Anion Gap 13.1, BUN 43 H, Creatinine 2.32 H, Estimated Creat Clear 12, Estimated GFR 20 L, Est GFR ( Amer) 24 L, Glucose 132 H, Calcium 9.4, Total Bilirubin 1.6 H, AST 18, ALT 22, Alkaline Phosphatase 70, Total Protein 6.9, Albumin 3.0 L, Globulin 3.9 H, Albumin/Globulin Ratio 0.8 L, Amylase 31, Lipase 79 10/05/17 19:00: Lactic Acid 1.4 10/05/17 20:25: Urine Color Yellow, Urine Appearance Clear, Urine pH 5.5, Ur Specific [place] 1.025, Urine Protein Negative, Urine Glucose (UA) Negative, Urine Ketones Negative, Urine Blood Negative, Urine Nitrate Negative, Urine Bilirubin Negative, Urine Urobilinogen 1.0, Ur Leukocyte Esterase 2+ A, Urine RBC None, Urine WBC 20-50, Ur Squamous Epith Cells 10-20, Ur Transition Epith Cell 10-20, Urine Bacteria 2+, Hyaline Casts 10-20 10/06/17 00:00: Urine Color Yellow, Urine Appearance Clear, Urine pH 5.5, Ur Specific [place] 1.025, Urine Protein Negative, Urine Glucose (UA) Negative, Urine Ketones Negative, Urine Blood Negative, Urine Nitrate Negative, Urine Bilirubin Negative, Urine Urobilinogen 1.0, Ur Leukocyte Esterase 1+ A, Urine RBC Occasional, Urine WBC 10-20 A, Ur Squamous Epith Cells 3-5, Urine Bacteria Trace 10/06/17 01:13: POC Glucose 143 H 10/06/17 05:30: WBC 14.1 H D, RBC 5.16, Hgb 8.7 L, Hct 31.6 L, MCV 61.3 L, MCH 16.8 L, MCHC 27.4 L, RDW 20.9 H, Plt Count 360, MPV 6.6 L, Neut % (Auto) 92.8 H , Lymph % (Auto) 2.1 L, [place] % (Auto) 5.1, Eos % (Auto) 0.0 L, Baso % (Auto) 0.0 L, Neut # (Auto) 13.1 H, Lymph # (Auto) 0.3 L, [place] # (Auto) 0.7, Eos # ( Auto) 0.0, Baso # (Auto) 0.0, Total Counted 100, Neutrophils % (Manual) 98 H, Monocytes % (Manual) 2, Platelet Estimate Normal, Hypochromasia 3+, Microcytosis 3+, Target Cells 1+ 10/06/17 05:30: Sodium 141, Potassium 4.4, Chloride 104, Carbon Dioxide 28, Anion Gap 13.4, BUN 41 H, Creatinine 2.07 H, Estimated Creat Clear 14, Estimated GFR 23 L, Est GFR ( Amer) 28 L, Glucose 141 H, Calcium 8.4 L D I & O for Last 24 hours: Intake & Output 10/04/17 10/05/17 10/06/17 10/07/17 11:59 11:59 11:59 11:59 Intake Total 650 / 650 Output Total 200 / 200 Balance 450 / 450 Weight 100 lb 4 oz - Constitutional no acute distress - *Routine HEENT Exam Head: Present: normocephalic, atraumatic Eye: Present: EOMI, PERRL ENT: Present: mucous membranes dry - *Routine Neck Exam Present: supple, full ROM - *Routine Respiratory Exam Present: CTA bilaterally - *Routine Cardiovascular Exam Present: RRR - *Routine Abdominal Exam Present: soft, tenderness (around incision site, dressing clean and dry, hypoactive BS) - *Routine Extremities Exam Absent: edema - *Routine Skin Exam Present: intact - *Routine Neurological Exam Present: alert, oriented X3 H&P: Result - Labs Labs: Short CBC 10/05/17 10/06/17 Range/Units 19:00 05:30 WBC 19.8 H 14.1 H D (4.8-10.8) K/mm3 Hgb 9.4 L 8.7 L (12.2-16.2) g/dL Hct 33.7 L 31.6 L (37.0-47.0) % Plt Count 419 360 (142-424) K/mm3 - Impressions Abd/Pelvis CT 1. Findings of mechanical small bowel obstruction secondary to a right inguinal hernia without definite evidence of strangulation at present. 2. Generalized cardio megaly with small to moderate size right pleural effusion 3. Large hiatal hernia with one third to one half of the stomach above the diaphragmatic hiatus 4. Probable biliary sludge and tiny calcified gallstones without definite evidence of cholecystitis. 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 Assessment and Plan (1) Incarcerated right inguinal hernia Current visit: Yes Status: Acute Category: Medical Code(s): K40.30 - Unilateral inguinal hernia, with obstruction, without gangrene, not specified as recurrent (2) Anemia Current visit: Yes Status: Acute Qualifiers: Anemia type: unspecified type Qualified Code(s): D64.9 - Anemia, unspecified Category: Medical Code(s): D64.9 - Anemia, unspecified (3) Renal insufficiency Current visit: Yes Status: Acute Category: Medical Code(s): N28.9 - Disorder of kidney and ureter, unspecified (4) SBO (small bowel obstruction) Current visit: Yes Status: Acute Category: Medical Code(s): K56.609 - Unspecified intestinal obstruction, unspecified as to partial versus complete obstruction (5) Hypertension Current visit: Yes Status: Chronic Category: Medical Code(s): I10 - Essential (primary) hypertension (6) Hyperlipidemia Current visit: Yes Status: Chronic Category: Medical Code(s): E78.5 - Hyperlipidemia, unspecified (7) COPD (chronic obstructive pulmonary disease) Current visit: Yes Status: Chronic Category: Medical Code(s): J44.9 - Chronic obstructive pulmonary disease, unspecified (8) Type 2 diabetes mellitus Current visit: Yes Status: Chronic Category: Medical Code(s): E11.9 - Type 2 diabetes mellitus without complications - Assessment and plan all Dx Assessment and Plan for all problems:: Patient tolerated surgery well. Further care will be as per surgery. Will repeat blood work tomorrow to make sure H&H is stable.
[2017-10-07 06:16] LABS: Basophils % 0.1 % (0.1-2.0); Eosinophils % 0.3 % (0.1-12.0); Hematocrit 31.2 % (37.0-47.0); Hemoglobin 8.4 g/dL (12.2-16.2); Lymphocytes # 0.6 K/mm3 (0.7-4.5); Lymphocytes % 6.2 K/mm3 (10-50); Mean Corpuscular Hemoglobin 16.8 pg (27.0-31.2); Mean Corpuscular Volume 62.2 fl (81-99); Mean Platelet Volume 6.1 fl (7.4-10.4); Monocytes # 0.8 K/mm3 (0.1-1.0); Monocytes % 8.2 % (1.7-9.3); Neutrophils # 8.7 K/mm3 (1.8-7.8); Neutrophils % 85.2 % (37.0-80.0); Platelet Count 344 K/mm3 (142-424); Red Blood Count 5.01 M/mm3 (4.20-5.40); Red Cell Distribution Width 21.7 % (11.5-17.5); White Blood Count 10.2 K/mm3 (4.8-10.8)
[2017-10-07 06:48] LABS: Lymphocytes % 6 % (10-50); Monocytes % 5 % (2-9); Neutrophils % 87 % (42-76); Total Cells Counted 100
[2017-10-07 06:49] LABS: Albumin Level 2.1 gm/dL (3.4-5.0); Albumin/Globulin Ratio 0.8 (1.1-1.8); Bilirubin,Total 0.6 mg/dL (0.2-1.0); Calcium 8.1 mg/dL (8.5-10.1); Globulin 2.8 gm/dl (1.3-3.2); Tear Drop Cells 1+; Total Protein,Serum 4.9 gm/dL (6.4-8.2)
--- NOTE | 2017-10-07 08:54 | Progress Note ---
Internal Medicine - PN: Subj *Date: 10/07/17 *Time: 08:51 Interval history: The patient had some episodes of tachycardia last night which was shown to be atrial fibrillation. She has apparently converted back to normal sinus rhythm after a dose of metoprolol last night. She had not been receiving her home medications due to the NG placement. Normally she takes Bystolic 5 mg daily which is not included on our formulary. Carvedilol 6.25 mg twice daily will be the substitutd. Her blood pressure is actually low this morning. She normally takes daily Lasix 40 mg which has been initially ordered. She is not holding any fluid however, so this dose will be decreased to 20 mg. I am not sure that Dr. Boo is rounding this morning. She has bowel sounds. We will clamp her NG tube. Exam Vital signs and Labs for Last 24 Hours: Temp Pulse Resp BP Pulse Ox 98.6 F 84 19 98/52 95 10/07/17 06:00 10/07/17 06:00 10/07/17 06:00 10/07/17 06:00 10/07/17 06:00 Laboratory Results - last 24 hr 10/06/17 01:13: POC Glucose 143 H 10/06/17 20:47: POC Glucose 94 10/07/17 05:50: WBC 10.2 D, RBC 5.01, Hgb 8.4 L, Hct 31.2 L, MCV 62.2 L, MCH 16.8 L, MCHC 27.0 L, RDW 21.7 H, Plt Count 344, MPV 6.1 L, Neut % (Auto) 85.2 H , Lymph % (Auto) 6.2 L, [place] % (Auto) 8.2, Eos % (Auto) 0.3, Baso % (Auto) 0.1, Neut # (Auto) 8.7 H, Lymph # (Auto) 0.6 L, [place] # (Auto) 0.8, Eos # (Auto) 0.0, Baso # (Auto) 0.0, Total Counted 100, Neutrophils % (Manual) 87 H, Lymphocytes % (Manual) 6 L, Atypical Lymphs % 2.0, Monocytes % (Manual) 5, Platelet Estimate Normal, Tear Drop Cells 1+, Acanthocytes (Spur) 1+ 10/07/17 05:50: Sodium 145, Potassium 4.0, Chloride 109 H, Carbon Dioxide 30, Anion Gap 10.0, BUN 34 H, Creatinine 1.33 H D, Estimated Creat Clear 22, Estimated GFR 38 L, Est GFR ( Amer) 46 L D, Glucose 74, Calcium 8.1 L, Total Bilirubin 0.6, AST 12 L D, ALT 11 L D, Alkaline Phosphatase 52, Total Protein 4.9 L D, Albumin 2.1 L D, Globulin 2.8, Albumin/Globulin Ratio 0.8 L I & O for Last 24 hours: Intake & Output 10/04/17 10/05/17 10/06/17 10/07/17 11:59 11:59 11:59 11:59 Intake Total 700 / 700 2510 / 2510 Output Total 200 / 200 1025 / 1025 Balance 500 / 500 1485 / 1485 Weight 100 lb 4 oz 99 lb 8 oz Microbiology Reports for the Last 24 Hours: Microbiology 10/06/17 00:00 Urine,Catheterized Urine Culture - Preliminary Gram Negative Rods 10/05/17 20:25 Urine,Clean Catch Urine Culture - Final Multiple organisms, suggests contamination. - Constitutional no acute distress - *Routine HEENT Exam Head: Present: normocephalic Eye: Present: PERRL ENT: Present: mucous membranes dry - *Routine Respiratory Exam Present: CTA bilaterally. Absent: respiratory distress - *Routine Cardiovascular Exam Present: RRR - *Routine Abdominal Exam Present: normoactive bowel sounds, tenderness - *Routine Extremities Exam Absent: edema Assessment and Plan (1) Incarcerated right inguinal hernia Current visit: Yes Status: Acute Category: Medical Code(s): K40.30 - Unilateral inguinal hernia, with obstruction, without gangrene, not specified as recurrent (2) Anemia Current visit: Yes Status: Acute Qualifiers: Anemia type: unspecified type Qualified Code(s): D64.9 - Anemia, unspecified Category: Medical Code(s): D64.9 - Anemia, unspecified (3) Renal insufficiency Current visit: Yes Status: Acute Category: Medical Code(s): N28.9 - Disorder of kidney and ureter, unspecified (4) SBO (small bowel obstruction) Current visit: Yes Status: Acute Category: Medical Code(s): K56.609 - Unspecified intestinal obstruction, unspecified as to partial versus complete obstruction (5) Hypertension Current visit: Yes Status: Chronic Category: Medical Code(s): I10 - Essential (primary) hypertension (6) Hyperlipidemia Current visit: Yes Status: Chronic Category: Medical Code(s): E78.5 - Hyperlipidemia, unspecified (7) COPD (chronic obstructive pulmonary disease) Current visit: Yes Status: Chronic Category: Medical Code(s): J44.9 - Chronic obstructive pulmonary disease, unspecified (8) Type 2 diabetes mellitus Current visit: Yes Status: Chronic Category: Medical Code(s): E11.9 - Type 2 diabetes mellitus without complications (9) First detected episode of atrial fibrillation Current visit: Yes Status: Acute Category: Medical Code(s): I48.91 - Unspecified atrial fibrillation
--- NOTE | 2017-10-07 12:25 | Progress Note ---
Internal Medicine - PN: Subj *Date: 10/07/17 *Time: 12:08 Interval history: CODE BLUE: The patient got up to the bathroom and had a bowel movement. As she was being helped to bathe she became unresponsive and without a pulse. CODE BLUE was initiated at 11:04 AM. CPR was performed. 1106 rhythm was detected in a bradycardic pattern. There was some pulse. At 1107 she restarted receiving Ambu baging. The emergency room doctor arrived at 1108 and intubated the patient. There was a femoral pulse detected at 1110. Fluids were started 1111 , blood pressure was obtained at 1112, 75/46. At 1114 a second IV was started. At 1115 she received atropine and second atropine was given 1116. At 1118 her heart rate was recorded at 34. ET Tube was replaced at 1120 due to displacement. Heart rate was 43. The emergency room doctor attempted a femoral central line which was not successful. An additional 0.5 of atropine was given at 1121. EKG was run at 1123. Heart rate was 38 at 1125. Additional atropine 0.5 was given at 1126, epinephrine was given at 1127 CPR was continued, at 1128 1 mg of atropine was given, 1128 CPR was continued. At 1130 to a heart rate of 48 was present but no blood pressure. Epinephrine was given at 1132. At 1136 CO2 saturation was 76%, 1140 there was no pulse and CPR was continued. Suction was started at 1140. Heart rate was 50 at 1141 but still pulse was not established. At 1142 possible pulse was detected. She got 1 amp of epinephrine at 1143. More IV fluids were given (third bag) at 1144 and NG was adjust at 1145, CPR was continued and epinephrine was given at 1147. There was an extreme bradycardia on the monitor but no pulse. Resuscitative efforts were discontinued at 1149. The family was present and was kept informed during the resuscitative efforts. Exam Vital signs and Labs for Last 24 Hours: Temp Pulse Resp BP Pulse Ox 98.6 F 69 16 75/46 98 10/07/17 08:00 10/07/17 10:00 10/07/17 10:00 10/07/17 10:00 10/07/17 10:00 Laboratory Results - last 24 hr 10/06/17 20:47: POC Glucose 94 10/07/17 05:50: WBC 10.2 D, RBC 5.01, Hgb 8.4 L, Hct 31.2 L, MCV 62.2 L, MCH 16.8 L, MCHC 27.0 L, RDW 21.7 H, Plt Count 344, MPV 6.1 L, Neut % (Auto) 85.2 H , Lymph % (Auto) 6.2 L, [place] % (Auto) 8.2, Eos % (Auto) 0.3, Baso % (Auto) 0.1, Neut # (Auto) 8.7 H, Lymph # (Auto) 0.6 L, [place] # (Auto) 0.8, Eos # (Auto) 0.0, Baso # (Auto) 0.0, Total Counted 100, Neutrophils % (Manual) 87 H, Lymphocytes % (Manual) 6 L, Atypical Lymphs % 2.0, Monocytes % (Manual) 5, Platelet Estimate Normal, Tear Drop Cells 1+, Acanthocytes (Spur) 1+ 10/07/17 05:50: Sodium 145, Potassium 4.0, Chloride 109 H, Carbon Dioxide 30, Anion Gap 10.0, BUN 34 H, Creatinine 1.33 H D, Estimated Creat Clear 22, Estimated GFR 38 L, Est GFR ( Amer) 46 L D, Glucose 74, Calcium 8.1 L, Total Bilirubin 0.6, AST 12 L D, ALT 11 L D, Alkaline Phosphatase 52, Total Protein 4.9 L D, Albumin 2.1 L D, Globulin 2.8, Albumin/Globulin Ratio 0.8 L 10/07/17 09:45: Blood Type A Positive, Antibody Screen Negative, Crossmatch (AHG ) See Detail I & O for Last 24 hours: Intake & Output 10/05/17 10/06/17 10/07/17 10/08/17 11:59 11:59 11:59 11:59 Intake Total 700 / 700 2510 / 2510 Output Total 200 / 200 1025 / 1025 Balance 500 / 500 1485 / 1485 Weight 100 lb 4 oz 99 lb 8 oz Microbiology Reports for the Last 24 Hours: Microbiology 10/06/17 00:00 Urine,Catheterized Urine Culture - Preliminary Gram Negative Rods 10/05/17 20:25 Urine,Clean Catch Urine Culture - Final Multiple organisms, suggests contamination. Assessment and Plan (1) Incarcerated right inguinal hernia Current visit: Yes Status: Acute Category: Medical Code(s): K40.30 - Unilateral inguinal hernia, with obstruction, without gangrene, not specified as recurrent (2) Anemia Current visit: Yes Status: Acute Qualifiers: Anemia type: unspecified type Qualified Code(s): D64.9 - Anemia, unspecified Category: Medical Code(s): D64.9 - Anemia, unspecified (3) Renal insufficiency Current visit: Yes Status: Acute Category: Medical Code(s): N28.9 - Disorder of kidney and ureter, unspecified (4) SBO (small bowel obstruction) Current visit: Yes Status: Acute Category: Medical Code(s): K56.609 - Unspecified intestinal obstruction, unspecified as to partial versus complete obstruction (5) Hypertension Current visit: Yes Status: Chronic Category: Medical Code(s): I10 - Essential (primary) hypertension (6) Hyperlipidemia Current visit: Yes Status: Chronic Category: Medical Code(s): E78.5 - Hyperlipidemia, unspecified (7) COPD (chronic obstructive pulmonary disease) Current visit: Yes Status: Chronic Category: Medical Code(s): J44.9 - Chronic obstructive pulmonary disease, unspecified (8) Type 2 diabetes mellitus Current visit: Yes Status: Chronic Category: Medical Code(s): E11.9 - Type 2 diabetes mellitus without complications (9) First detected episode of atrial fibrillation Current visit: Yes Status: Acute Category: Medical Code(s): I48.91 - Unspecified atrial fibrillation (10) Cardiovascular collapse Current visit: Yes Status: Acute Category: Medical Code(s): R57.0 - Cardiogenic shock - Assessment and plan all Dx Assessment and Plan for all problems:: The body was released to the home.
--- NOTE | 2017-10-07 14:42 | Progress Note ---
Acute Rapid Response Note - Subjective Date Responded: 10/07/17 Time Responded: 11:10 Provider Note: S: 86 years old white female who is postop day 1 for colon resection and anastomosis per nursing staff. She did well until she went to the bathroom and suddenly she collapsed became agonal breathing hypotensive and bradycardic. Her labs from this morning reflects anemia and renal insufficiency with no electrolyte imblance. O: HR 43/min assisted ventilation by respiratory therapist. Chest is clear to auscultation bilaterally. Heart is bradycardia with distant heart sounds. Abdomen is soft no guarding with recent incision in the right lower quadrant, the dressing was clean before going to the bathroom and became suddenly soaked with blood per nursing staff. It is not leaking outside the dressing. Extremities: Equal bilateral femoral pulse with no edema. A/P: 1- Apnea 2- no IV access 3 HYpotension 4 Bradycardia 1-airway management: Patient was intubated with ET tube size 6 using MAC blade 3 on a second attempt with good bilateral breath sounds no abdominal sounds CO2 detector positive. 2-attempted 16-gauge in the right external jugular with infiltration. 3-into the right femoral central line but the guidewire did not advance. The attempt was examined eventually aborted. 4-per ACLS protocol the patient was given multiple doses of atropine and eventually was started on levo fed. 5-at one point she required CPR. 6-Dr. Zhong her primary care physician vp public relations arrived and he took over the code, 11:[address] No - Objective Findings: Vital Signs - Last 4 Hours Temperature 98.6 F 10/07/17 08:00 Temperature Source Oral 10/07/17 08:00 Pulse Rate 69 10/07/17 10:00 Respiratory Rate 16 10/07/17 10:00 Blood Pressure 75/46 10/07/17 10:00 Blood Pressure Mean 55 10/07/17 10:00 Blood Pressure Source Automatic Cuff 10/07/17 10:00 Blood Pressure Position Supine 10/07/17 10:00 02 Sat by Pulse Oximetry 98 10/07/17 10:00 Oxygen Delivery Method 10/07/17 10:00 Oxygen Flow Rate (LPM) 3 10/07/17 10:00 Lab Results for Past 12 Hours 10/07/17 09:45: Blood Type A Positive, Antibody Screen Negative, Crossmatch (AHG ) See Detail 10/07/17 05:50: Sodium 145, Potassium 4.0, Chloride 109 H, Carbon Dioxide 30, Anion Gap 10.0, BUN 34 H, Creatinine 1.33 H D, Estimated Creat Clear 22, Estimated GFR 38 L, Est GFR ( Amer) 46 L D, Glucose 74, Calcium 8.1 L, Total Bilirubin 0.6, AST 12 L D, ALT 11 L D, Alkaline Phosphatase 52, Total Protein 4.9 L D, Albumin 2.1 L D, Globulin 2.8, Albumin/Globulin Ratio 0.8 L 10/07/17 05:50: WBC 10.2 D, RBC 5.01, Hgb 8.4 L, Hct 31.2 L, MCV 62.2 L, MCH 16.8 L, MCHC 27.0 L, RDW 21.7 H, Plt Count 344, MPV 6.1 L, Neut % (Auto) 85.2 H , Lymph % (Auto) 6.2 L, [place] % (Auto) 8.2, Eos % (Auto) 0.3, Baso % (Auto) 0.1, Neut # (Auto) 8.7 H, Lymph # (Auto) 0.6 L, [place] # (Auto) 0.8, Eos # (Auto) 0.0, Baso # (Auto) 0.0, Total Counted 100, Neutrophils % (Manual) 87 H, Lymphocytes % (Manual) 6 L, Atypical Lymphs % 2.0, Monocytes % (Manual) 5, Platelet Estimate Normal, Tear Drop Cells 1+, Acanthocytes (Spur) 1+ Rapid Response Exam - General General appearance: obtunded - Head Head exam: atraumatic, normocephalic, normal inspection - Eye Eye exam: Present: normal appearance, PERRL, EOMI - ENT ENT exam: Present: normal exam, normal oropharynx, mucous membranes moist, TM's normal bilaterally, normal external ear exam - Neck Neck exam: Present: normal inspection, full ROM, trachea midline - Chest Chest inspection: Present: other (apnic ) - Cardiovascular Cardiovascular exam: Present: bradycardia - Abdominal Exam Abdominal exam: Present: soft, other (Recent abdominal incision in the right lower quadrant, dressing soaked in blood. ). Absent: rigidity - External exam: Present: normal external exam - Extremities Exam Extremities exam: Present: normal inspection - Skin Skin exam: Present: other (a recent Right lower quadrant abdominal incision)
--- NOTE | 2017-10-08 21:25 | Discharge Summary ---
General - General Admission date:: 10/06/17 Discharge date: 10/07/17 HPI HPI: Ms. Eng is an 86-year-old white female. She has a known history of a right inguinal hernia. She states that 4 days ago after she had eaten, she developed cramping abdominal pain with nausea and vomiting. This persisted. She saw Dr. Love Monday. It is felt that this may be gastroenteritis but her WBC was elevated. He prescribed her bactrim and zofran. Her symptoms persisted and she presented to the emergency department yesterday evening. She underwent a noncontrast CT scan which revealed a small bowel obstruction secondary to the right inguinal hernia. Patient states that she did have a right inguinal bulge which has been "flat" for years. When she developed the nausea and vomiting 4 days ago, it protruded significantly more. Surgery was consulted and it was felt she had a strangulated inguinal hernia. She was taken to emergency surgery and had an open repair via trans-inguinal approach of the femoral hernia with a small bowel resection and primary anastomosis. She tolerated the procedure well. At this time she is feeling better. She has an NG tube in place as well as a catheter. She denies any pain. She states she is hungry and thirsty. Hospital Course Hospital Course: The patient had some episodes of tachycardia the first night after surgery which was shown to be atrial fibrillation. She converted back to normal sinus rhythm after a dose of metoprolol. She had not been receiving her home medications due to the NG placement. Normally she took Bystolic 5 mg daily which is not included on our formulary. Carvedilol 6.25 mg twice daily was substituted. Her blood pressure was actually low the morning after surgery. She normally took daily Lasix 40 mg, which was ordered, but was decreased to 20 mg. Her NG tube was clamped. On 10/07/17, the patient got up to the bathroom and had a bowel movement. As she was being helped to bathe she became unresponsive and without a pulse. She was coded and remained without a pulse. Efforts were discontinued at 1149. The family was present and was kept informed during the resuscitative efforts. Objective Vital signs: Temp Pulse Resp BP Pulse Ox 98.6 F 69 16 75/46 98 10/07/17 08:00 10/07/17 10:00 10/07/17 10:00 10/07/17 10:00 10/07/17 10:00 Narrative: - Constitutional no acute distress - *Routine HEENT Exam Head: Present: normocephalic, atraumatic Eye: Present: EOMI, PERRL ENT: Present: mucous membranes dry - *Routine Neck Exam Present: supple, full ROM - *Routine Respiratory Exam Present: CTA bilaterally - *Routine Cardiovascular Exam Present: RRR - *Routine Abdominal Exam Present: soft, tenderness (around incision site, dressing clean and dry, hypoactive BS) - *Routine Extremities Exam Absent: edema - *Routine Skin Exam Present: intact - *Routine Neurological Exam Present: alert, oriented X3 Results Labs on day of discharge: Preliminary micro results at discharge 10/05/17 18:51 Blood Culture - Preliminary Blood NO GROWTH AFTER 48 HOURS 10/05/17 18:51 Blood Culture - Preliminary Blood NO GROWTH AFTER 48 HOURS DS: Diagnosis - Discharge Diagnosis (1) Incarcerated right inguinal hernia Status: Acute (2) Anemia Status: Acute (3) Renal insufficiency Status: Acute (4) SBO (small bowel obstruction) Status: Acute (5) Hypertension Status: Chronic (6) Hyperlipidemia Status: Chronic (7) COPD (chronic obstructive pulmonary disease) Status: Chronic (8) Type 2 diabetes mellitus Status: Chronic (9) First detected episode of atrial fibrillation Status: Acute (10) Cardiovascular collapse Status: Acute Discharge Plan - Patient Discharge Instructions Patient Instructions: Surgical Site Infection - Follow up Plan Disposition: Home Medications: Home Medications Medication Instructions Recorded Confirmed Type Alendronate Sodium 70 mg PO WEEKLY 10/05/17 10/05/17 History Aspirin [Aspir 81] 81 mg PO DAILY 10/05/17 10/05/17 History Cyanocobalamin (Vitamin B-12) 2,000 mcg PO DAILY 10/05/17 10/05/17 History [Vitamin B-12] Ergocalciferol (Vitamin D2) 400 unit PO DAILY 10/05/17 10/05/17 History [Vitamin D] Furosemide [Furosemide 40MG tAB] 40 mg PO DAILY 10/05/17 10/05/17 History Latanoprost [Xalatan 0.005% Ophth 1 drop EYE-BOTH DAILY 10/05/17 10/05/17 History Soln 2.5mL] Metformin HCl 500 mg PO DAILY 10/05/17 10/05/17 History Nebivolol HCl [Bystolic] 5 mg PO DAILY 10/05/17 10/05/17 History Ondansetron HCl 4 mg PO Q6HP PRN 10/05/17 10/05/17 History Pravastatin Sodium 80 mg PO HS 10/05/17 10/06/17 History Spironolactone 25 mg PO DAILY 10/05/17 10/05/17 History Sulfamethoxazole/Trimethoprim 1 tab PO BID 10/05/17 10/06/17 History [Sulfamethoxazole-Tmp Ds Tablet] Ubidecarenone [Co Q-10] 10 mg PO DAILY 10/05/17 10/05/17 History Umeclidinium Brm/Vilanterol Tr 1 puff PO DAILY 10/05/17 10/06/17 History [Anoro Ellipta 62.5-25 Mcg INH] Valsartan 160 mg PO DAILY 10/05/17 10/05/17 History predniSONE [Deltasone 10mg tablet] 5 mg PO DAILY 10/05/17 10/05/17 History Prescriptions/Medication Reconciliation: No Action Valsartan 160 mg PO DAILY Umeclidinium Brm/Vilanterol Tr [Anoro Ellipta 62.5-25 Mcg INH] 1 puff PO DAILY Ubidecarenone [Co Q-10] 10 mg PO DAILY Sulfamethoxazole/Trimethoprim [Sulfamethoxazole-Tmp Ds Tablet] 1 tab PO BID Spironolactone 25 mg PO DAILY predniSONE [Deltasone 10mg tablet] 5 mg PO DAILY Ondansetron HCl 4 mg PO Q6HP PRN PRN Reason: Nausea Nebivolol HCl [Bystolic] 5 mg PO DAILY Metformin HCl 500 mg PO DAILY Latanoprost [Xalatan 0.005% Ophth Soln 2.5mL] 1 drop EYE-BOTH DAILY Furosemide [Furosemide 40MG tAB] 40 mg PO DAILY Ergocalciferol (Vitamin D2) [Vitamin D] 400 unit PO DAILY Cyanocobalamin (Vitamin B-12) [Vitamin B-12] 2,000 mcg PO DAILY Aspirin [Aspir 81] 81 mg PO DAILY Alendronate Sodium 70 mg PO WEEKLY Pravastatin Sodium 80 mg PO HS
== END 2017-10-07 11:49 | disposition expired ==
LOC: ER 18:33 → 2ND 20:45 → OR 22:20 → 2ND 10-06 01:47
PROVIDERS: ADMIT Family Medicine; ATTEND Family Medicine